=== PATIENT | female | born 1970 | race Caucasian/White ===

== ENCOUNTER 2023-10-28 21:20 | Emergency (ER) | payer OTHER, SELFPAY ==
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
[2023-10-28 21:26] VITALS: BP 160/106; PULSE 82; O2SAT 96
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
[2023-10-28 21:34] VITALS: BMI 36.1
[2023-10-28 22:00] VITALS: BP 113/57; PULSE 69; RESP 18; TEMP 36.4; O2SAT 96
[2023-10-28] MEDS: Ondansetron ODT 4 MG TAB.RAPDIS TRANSLINGU (22:20)
[2023-10-28] MEDS: Acetaminophen 325 MG TABLET 650 MG PO (22:20)
[2023-10-28] MEDS: oxyCODONE HCl Immed Release 5 MG TABLET PO (22:20)
[2023-10-28 22:30] VITALS: BP 113/57; PULSE 69; RESP 18; TEMP 36.4; O2SAT 96
== END 2023-10-28 22:31 | disposition home or self-care (01) ==
PROVIDERS: Emergency Provider Emergency Medicine
DX: S09.90XA Unspecified injury of head, initial encounter (principal); S16.1XXA Strain of muscle, fascia and tendon at neck level, initial encounter; S43.402A Unspecified sprain of left shoulder joint, initial encounter; S80.02XA Contusion of left knee, initial encounter; M54.2 Cervicalgia; M25.562 Pain in left knee; M25.512 Pain in left shoulder; R51.9 Headache, unspecified; V43.62XA Car passenger injured in collision with other type car in traffic accident, initial encounter; Y93.9 Activity, unspecified; Y92.410 Unspecified street and highway as the place of occurrence of the external cause; Y99.8 Other external cause status
CPT/HCPCS: 70450; 72125; 73030; 73564; 99284

== ENCOUNTER 2025-06-24 16:20 | Emergency (ER) | payer OTHER, SELFPAY ==
--- NOTE | ~2025-06-24 | XR_ITS ---
CLINICAL HISTORY: L posterior lower rib pain 2 view chest x-ray Comparison: None provided Findings: The lungs are clear. Heart size is normal. No displaced rib fractures. IMPRESSION: 1. No acute findings. This document has been electronically signed by: Slava Loaiza MD on 06/24/2025 18:18:26
--- NOTE | 2025-06-24 16:30 | ED_ITS ---
HPI - General Adult General Chief complaint: Back Pain/Injury Stated complaint: lower left back pain Time Seen by Provider: 06/24/25 18:37 History of Present Illness HPI narrative: Author / Clinician: David Kim MD Chief Complaint Back pain History of Present Illness --- Vika presents to the ED with a 5-day history of upper lumbar/lower thoracic paraspinal pain. The pain has remained unchanged since onset and is significant enough to interfere with both daytime and nighttime sleep. She has taken acetaminophen (Tylenol) for the last 2 days without relief. She states the pain is too much and is interfering with her ability to sleep both during the day and at night. She denies dysuria or burning with urination and has no personal history of kidney infection or kidney stones. She reports no acute worsening today; she chose to come to the ED because the pain persists. [employer]spring [employer] services utilized throughout the encounter. --- Review of Systems Musculoskeletal: Positive for upper lumbar/lower thoracic back pain. Genitourinary: Denies dysuria or urinary pain. All other systems not discussed. --- Physical Examination Vital Signs: Measure Value ------- ----- Physical Exam: Gen: Alert, awake, well appearing, well hydrated. Head: Atraumatic. Eyes: Anicteric, normal conjunctiva. ENT: Moist mucosa, no pallor. Neck: Supple. Respiratory: Breathing comfortably, clear to auscultation bilaterally; symmetric chest expansion; no wheeze, rales, or rhonchi. Cardiovascular: Regular rate and rhythm; no murmurs or rubs; well-perfused periphery; warm extremities; no edema. Abdominal: Soft, nondistended; no palpable masses or organomegaly; no focal tenderness, guarding, or rebound. Neurologic: Alert; gross movement of all extremities intact. Psych: Calm. MSK: Tenderness and palpable spasm along the left midthoracic/upper lumbar paraspinal musculature no bruising no crepitus --- Diagnostics / ED Course - Urinalysis: No evidence of urinary tract infection; negative for hematuria. --- Medical Decision Making Preliminary Differential: Back strain, back spasm, less likely renal pathology such as pyelonephritis or kidney stone 54-year-old female with no direct blow or injury but pain palpable spasm paraspinal back musculature. Nonfocal neurologic exam strong motor strength normal gait. No bruising. Urinalysis does not suggest hematuria/kidney stone or infectious causes. 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 Independent Data Analysis/Interpretation: - Interpreted [id number] urinalysis demonstrating no UTI and no hematuria. --- Plan - Discharge instructions and return precautions given in [place] via crust sorter. --- Disposition DC --- Critical Care N/A Related Data Previous Rx's ?Medication ?Instructions ?Recorded cyclobenzaprine 10 mg tablet 10 mg PO TID PRN muscle s pasm #20 10/28/23 tabs ibuprofen 600 mg tablet 600 mg PO Q6H PRN pain #30 t abs 10/28/23 lidocaine 5 % topical patch 1 patch topical DAILY #30 ea 10/28/23 cyclobenzaprine 5 mg tablet 5 mg PO TID PRN muscle spa sm #10 06/24/25 tabs ibuprofen 600 mg tablet 600 mg PO TID PRN fever #10 tabs 06/24/25 Allergies Allergy/AdvReac Type Severity Reaction Status Date / Time No Known Allergies Allergy Verified 06/24/25 16:32 [facility] Past Medical History Medical History Arthritis Social History Social History (Updated 10/28/23 @ 21:43 by Josselyn Velazquez DO) Patient Tobacco Use Status: Never used Tobacco Smoked in Last 30 Days: Yes Use of substances other than those prescribed or required for medical reasons: No Advance Directives: No Advance Directives Information Provided: No Do you have a plan to hurt others: No Plan Physical Exam ED Vital Signs: Vital Signs - 24 hr 06/24/25 16:31 06/24/25 19:06 06/24/25 20:07 Temperature 98 F 97.4 F 97.4 F Pulse Rate 76 71 71 Respiratory Rate 18 16 16 Blood Pressure 144/65 H 128/85 128/85 Pulse Oximetry 98 97 97 Oxygen Delivery Method Room Air Room Air Room Air BMI result Body Mass Index 34.9 Course Course Course Narrative: This is a Rapid Medical Examination (RME) performed by Lilly Wolfe PA-C in triage. Full HPI, ROS, assessment and treatment plan per primary provider in the Main ED. Hx: 54 yo F here for eval of left lower posterior rib pain x 1 week. present w/ movement and at rest. taking tylenol without improvement. no urinary sx. no injury/trauma. Plan: labs, ekg, cxr, UA Medications Administered Discontinued Medications Generic Name Dose Route Start Last Admin Trade Name Rashiq PRN Reason Stop Dose Admin Acetaminophen 650 mg 06/24/25 18:45 06/24/25 19:00 Acetaminophen 325 Mg Tablet PO 06/24/25 18:46 650 mg ONCE ONE Administration Diazepam 2 mg 06/24/25 18:45 06/24/25 19:01 Diazepam 2 Mg Tablet PO 06/24/25 18:46 2 mg ONCE ONE Administration Ketorolac Tromethamine 15 mg 06/24/25 18:45 06/24/25 19:01 Ketorolac Tromethamine 15 Mg/Ml Vial IM 06/24/25 18:46 15 mg ONCE ONE Administration Lidocaine 1 patch 06/24/25 18:45 06/24/25 19:01 Lidocaine 4 % Patch Adh..Patch TRANSDERMA 06/24/25 18:46 1 patch ONCE ONE Administration Protocol Methocarbamol 750 mg 06/24/25 18:45 06/24/25 19:00 Methocarbamol 750 Mg Tablet PO 06/24/25 18:46 750 mg ONCE ONE Administration Medical Decision Making Lab Data 06/24/25 16:59 06/24/25 16:59 Labs: Lab Results 06/24/25 06/24/25 Range/Units 16:59 19:14 WBC 9.4 (4.8-10.8) X10*3/uL RBC 5.02 (4.20-5.50) X10*6/uL Hgb 13.5 (12.0-16.0) g/dl Hct 41.1 (37.0-47.0) % MCV 81.9 (80.0-98.0) fL MCH 26.9 L (27.0-33.0) pg MCHC 32.8 (31.0-35.0) g/dl RDW 14.3 (11.0-16.0) % Plt Count 333 (160-400) X10*3/uL MPV 9.5 (9.4-12.3) fL Immature Gran % (Auto) 0.3 (0.0-0.4) % Neut % (Auto) 57.2 (45-73) % Lymph % (Auto) 32.8 (20-40) % [place] % (Auto) 6.8 (2-11) % Eos % (Auto) 2.4 (0-4) % Baso % (Auto) 0.5 (0-2) % Lymph # (Auto) 3.1 (1.2-4.9) X10*3/uL [place] # (Auto) 0.6 (0.1-1.2) X10*3/uL Eos # (Auto) 0.2 (0.0-0.4) X10*3/uL Baso # (Auto) 0.1 (0.0-0.2) X10*3/uL Abs Immat Gran (auto) 0.03 (0.00-0.03) X10*3/uL Absolute Neuts (auto) 5.4 (2.0-8.3) x10*3/uL Absolute Nucleated RBC 0.000 (0.0-0.012) X10*3/uL Nucleated RBC % (auto) 0.0 (0.0-0.2) /100WBC Sodium 141 (135-145) mmol/L Potassium 3.8 (3.3-5.1) mmol/L Chloride 111 H (96-108) mmol/L Carbon Dioxide 24 (22-29) mmol/L Anion Gap 10 L (12-20) BUN 11 (9-16) mg/dL Creatinine 0.58 (0.5-1.4) mg/dL Estim Creat Clear Calc 117.6 Estimated GFR > 60 Random Glucose 97 (60-115) mg/dL Calcium 8.7 (8.4-10.2) mg/dL Magnesium 1.9 (1.6-2.6) mg/dL Total Bilirubin 0.2 (0.0-1.0) mg/dL AST 14 (5-31) U/L ALT 17 (0-31) U/L Alkaline Phosphatase 85 (39-117) U/L Troponin I High Sens < 2.7 (<3.5-17.0) ng/L Total Protein 6.9 (6.5-8.0) g/dL Albumin 4.3 (3.5-5.0) g/dL Urine Color Yellow Urine Appearance Clear Urine pH 5.5 (5.0-9.0) Ur Specific [place] 1.025 (1.005-1.025) Urine Protein Negative (Neg-Trace) mg/dL Urine Glucose (UA) Negative (Negative) mg/dL Urine Ketones Negative (Negative) mg/dL Urine Blood Negative (Negative) Urine Nitrite Negative (Negative) Ur Leukocyte Esterase Trace H (Negative) Urine RBC 0-2 (0-2) /HPF Urine WBC 0-5 (0-5) /HPF Ur Squamous Epith Cells 6-10 (0-2) /HPF Urine Bacteria 4+ (None Seen) Hyaline Casts 0-2 (0-2) /LPF Discharge Plan Discharge Clinical Impression: Thoracic back pain Patient Disposition: Home, Self-Care Instructions: Back Pain (ED) Additional Instructions: You had reassuring normal lab work and chest x-ray and EKG. We think you have a muscle spasm of your left back. You can use a heating pad ibuprofen or muscle relaxants that we provided for you Prescriptions: New cyclobenzaprine 5 mg tablet 5 mg PO TID PRN (Reason: muscle spasm) Qty: 10 0RF ibuprofen 600 mg tablet 600 mg PO TID PRN (Reason: fever) Qty: 10 0RF No Action cyclobenzaprine 10 mg tablet 10 mg PO TID PRN (Reason: muscle spasm) Qty: 20 0RF lidocaine 5 % adhesive patch,medicated 1 patch topical DAILY Qty: 30 0RF Rx Instructions: leave on most painful area for up to 12 hrs ibuprofen 600 mg tablet 600 mg PO Q6H PRN (Reason: pain) Qty: 30 0RF Interventions: ED Discharge Assessment Last Done: 06/24/25 20:07 Discharge Date/Time: 06/24/25 20:08 Print Language: [place]
[2025-06-24 16:31] VITALS: BP 144/65; PULSE 76; RESP 18; TEMP 36.6; O2SAT 98; BMI 34.9
--- NOTE | 2025-06-24 16:32 | ECG_ITS ---
Test Reason : RIB PAIN Blood Pressure : */* mmHG Vent. Rate : 67 BPM Atrial Rate : 67 BPM P-R Int : 156 ms QRS Dur : 84 ms QT Int : 428 ms P-R-T Axes : 47 21 28 degrees QTcB Int : 452 ms Normal sinus rhythm Normal ECG No previous ECGs available Referred By: Melinda Wolfe Electronically Signed By: LOBO KNAPP MD
[2025-06-24 17:03] LABS: MANUAL DIFF FLAG NO
[2025-06-24 17:05] LABS: Hematocrit 41.1 % (37.0-47.0); Hemoglobin 13.5 g/dl (12.0-16.0); Imm Gran Abs Auto 0.03 X10*3/uL (0.00-0.03); Imm Gran Pct Auto 0.3 % (0.0-0.4); Lymphocytes Absolute Auto 3.1 X10*3/uL (1.2-4.9); Mean Corpuscular HGB Conc 32.8 g/dl (31.0-35.0); Mean Corpuscular Hemoglobin 26.9 pg (27.0-33.0); Mean Corpuscular Volume 81.9 fL (80.0-98.0); NRBC Abs Auto 0.000 X10*3/uL (0.0-0.012); NRBC Pct Auto 0.0 /100WBC (0.0-0.2); Platelet Count 333 X10*3/uL (160-400); Red Blood Count 5.02 X10*6/uL (4.20-5.50); White Blood Count 9.4 X10*3/uL (4.8-10.8)
[2025-06-24 17:20] LABS: Alanine Aminotransferase 17 U/L (0-31); Albumin Level 4.3 g/dL (3.5-5.0); Alkaline Phosphatase 85 U/L (39-117); Anion Gap 10 (12-20); Aspartate Amino Transferase 14 U/L (5-31); Blood Urea Nitrogen 11 mg/dL (9-16); Calcium 8.7 mg/dL (8.4-10.2); Carbon Dioxide 24 mmol/L (22-29); Chloride 111 mmol/L (96-108); Creatinine Clr Calc Pharmacy 117.6; Estimated Glomerular Filt Rate > 60; Magnesium 1.9 mg/dL (1.6-2.6); Potassium 3.8 mmol/L (3.3-5.1); Sodium 141 mmol/L (135-145); Total Protein 6.9 g/dL (6.5-8.0)
[2025-06-24 17:34] LABS: Troponin-I High Sensitivity < 2.7 ng/L (<3.5-17.0)
[2025-06-24] MEDS: Lidocaine 4 % Patch ADH..PATCH 1 PATCH TRANSDERMA (19:01)
[2025-06-24 19:06] VITALS: BP 128/85; PULSE 71; RESP 16; TEMP 36.3; O2SAT 97
[2025-06-24 19:20] LABS: Appearance Urine Clear; Glucose Urine UA Negative (Negative); PH 5.5 (5.0-9.0); Specific Gravity - Urine 1.025 (1.005-1.025); UMIC TRIGGER UACC YES
[2025-06-24 20:07] VITALS: BP 128/85; PULSE 71; RESP 16; TEMP 36.3; O2SAT 97
== END 2025-06-24 20:08 | disposition home or self-care (01) ==
PROVIDERS: Physician Assistant Medical; Emergency Provider Emergency Medicine
DX: M54.6 Pain in thoracic spine (principal); R07.89 Other chest pain; M54.50 Low back pain, unspecified; Z79.899 Other long term (current) drug therapy
CPT/HCPCS: 36415; 71046; 80053; 81001; 83735; 84484; 85025; 93005; 96372; 99284; J1885

== ENCOUNTER → 2025-06-24 16:32 | Outpatient (BNV) | payer OTHER, SELFPAY | PROVIDERS: Emergency Provider Emergency Medicine; Visit Provider Internal Medicine Cardiovascular Disease | DX: R07.89 Other chest pain (principal) | CPT/HCPCS: 93010 ==

== ENCOUNTER → 2025-06-24 16:32 | Outpatient (BNV) | payer OTHER, SELFPAY | PROVIDERS: Emergency Provider Emergency Medicine; Visit Provider Radiology Diagnostic Radiology | DX: R07.89 Other chest pain (principal) | CPT/HCPCS: 71046 ==